=== PATIENT | male | born 1970 | race Caucasian/White ===

== ENCOUNTER 2020-06-30 19:05 | Emergency (ER) | payer BC ==
[~2020-06-30] VITALS: Ht 180.3 cm; Wt 108.0 kg
--- NOTE | 2020-06-30 19:14 | PHYS DOC ---
General Adult HPI: HPI: 49-year-old male past medical history of factor V Leiden on Xarelto & ASA, CVA (residual right sided vision loss) and HTN, presents to the ED brought in by EMS concern for code stroke with complaints of left hand numbness that has worsened, now to complete paralysis of his left upper extremity, left facial droop and slurred speech that started at 1835 (1834 LKW) this evening. Pt does not know what tpa is or if he's ever received it. Glucose was 167 per EMS. Patient reports he takes Xarelto 20 mg every night, last dose was 9 PM last night. Reports past strokes in 2015 where he was initially seen at [facility] but diagnosed at . 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 Buck, pcp-Marnie Vo and was diagnosed with factor V Leiden, is been on Xarelto ever since then. No history of DVT, PEs or CAD/ACS. No history of Covid in the past year. Review of Systems: Review of Systems: Constitutional: Denies fever or chills. [] Eyes: Denies change in visual acuity. [] HENT: Denies nasal congestion or sore throat. [] Respiratory: Denies cough or shortness of breath. [] Cardiovascular: Denies chest pain or edema. [] GI: Denies abdominal pain, nausea, vomiting, bloody stools or diarrhea. [] : Denies dysuria or hematuria Musculoskeletal: Denies back pain or joint pain. [] Integument: Denies rash or diaphoresis Neurologic: Denies headache or neck stiffness Endocrine: Denies polyuria or polydipsia. [] Lymphatic: Denies swollen glands. [] Psychiatric: Denies depression or anxiety. [] Heart Score: Risk Factors: Risk Factors: DM, Current or recent (<one month) smoker, HTN, HLP, family history of CAD, obesity. Risk Scores: Score 0 - 3: 2.5% MACE over next 6 weeks - Discharge Home Score 4 - 6: 20.3% MACE over next 6 weeks - Admit for Clinical Observation Score 7 - 10: 72.7% MACE over next 6 weeks - Early Invasive Strategies Physical Exam: PE: Constitutional: Well developed, well nourished, no acute distress, non-toxic appearance. HENT: Normocephalic, atraumatic, Eyes: PERRLA, EOMI, conjunctiva normal, no discharge. Neck: Normal range of motion, supple, Cardiovascular: S1/2 present, regular rhythm Lungs & Thorax: Speaking in full sentences, bilateral equal chest rise, no tachypnea or increased work of breathing Abdomen: soft, no tenderness, Skin: Warm, dry, no erythema, no rash. [] Back: No tenderness, no CVA tenderness. [] Extremities: No tenderness, no cyanosis, no edema Neurologic: 13 points NIH Stroke Scale (1-dysarthria, 2-loss of sensation lue, 1-drift LLE, 2-partial facial paralysis, 1-unable to squeeze left hand, 4-no left arm movment, 1-partial hemianopia, 1-mild/mod aphasia), alert and oriented X 3, Psychologic: Affect normal, judgement normal, mood normal. [] EKG: EKG: Sinus rhythm at 62 bpm, no axis deviation, T wave inversion lead III, no STEFANO/STD Radiology/Procedures: Radiology/Procedures: IMAGING REPORT Signed PATIENT: WADE NELSON PACCOUNT: [id number] : 1970 LOCATION: ER AGE: 49 SEX: M EXAM STATUS: PRE ER ORD. PHYSICIAN: KELLY IRWIN DO REASON: lue paralysis PROCEDURE: CT CODE STROKE HEAD WO Exam: CT head INDICATION: Left upper extremity paralysis TECHNIQUE: Sequential axial images through the head were obtained without the administration of IV contrast. Comparisons: None FINDINGS: No focal parenchymal lesion or hemorrhage is identified. There is no midline shift or sulcal effacement. Several chronic appearing infarcts are noted bilaterally largest in the left occipital lobe. Patchy hypodensity in the periventricular white matter. Lacunar infarcts the basal ganglia bilaterally. No acute vascular territory infarction is identified. Lux-white distinction is preserved. The ventricular system is within normal limits without compression hydrocephalus. The basal cisterns are well maintained. The visualized portions of the paranasal sinuses and mastoid air cells are well- pneumatized. No acute fractures. IMPRESSION: Several chronic infarcts with age-indeterminate small vessel ischemic change. No acute hemorrhage. Exposure: One or more of the following in the visualized dose reduction techniques were utilized for this examination: 1. Automated exposure control 2. Adjustment of the MA and/or KV according to patient size Use of iterative of reconstructive technique FOR INTERNAL CODING PURPOSES Critical result: Findings discussed with Kelly Irwin at 06/30/2020 7:21 PM. RESULT CODE: (C) Electronically signed by: Kimani Vigil MD (06/30/2020 7:26 PM) [id number] DICTATED and SIGNED BY: KIMANI VIGIL MD DATE: 06/30/[id number] 0 IMAGING REPORT Signed PATIENT: WADE NELSON PACCOUNT: [id number] : 1970 LOCATION: ER AGE: 49 SEX: M EXAM STATUS: PRE ER ORD. PHYSICIAN: KELLY IRWIN DO REASON: left arm weakness PROCEDURE: PORTABLE CHEST 1V Single view chest dated 06/30/2020: No comparison available. Clinical Indication: CVA. Findings: Single upright portable exam of the chest was performed. Heart size and mediastinal contours are within normal limits given technique. The lungs are clear without evidence of focal consolidation. Vascular interstitium is within normal limits. Impression:: Negative portable chest. Electronically signed by: Evin Thibodeaux MD (06/30/2020 7:41 PM) [id number] DICTATED and SIGNED BY: EVIN THIBODEAUX MD DATE: 06/30/[id number] 0 IMAGING REPORT Signed PATIENT: WADE NELSON PACCOUNT: [id number] : 1970 LOCATION: ER AGE: 49 SEX: M EXAM STATUS: PRE ER ORD. PHYSICIAN: KELLY IRWIN DO REASON: lue paralysis/ OMNI 350, 75 ML. HX STROKE PROCEDURE: CTA HEAD/NECK - CODE STROKE Exam: CTA head and neck INDICATION: Left upper extremity paralysis TECHNIQUE: Sequential axial images through the head and neck obtained following the administration of 75 mL of Omni 350 IV contrast. Sagittal and coronal reformatted images were reconstructed from the axial data and reviewed. 3-D reformatted images were reconstructed from the axial data and reviewed. Comparisons: CT head without contrast same day FINDINGS: CTA NECK: Visualized portions of thoracic aorta is unremarkable. Standard three-vessel aortic arch. Right common carotid artery is patent without evidence of stenosis, occlusion or aneurysm. Mild plaque at the origin of the right internal carotid artery without significant stenosis. Left common carotid artery is patent without evidence of stenosis, occlusion or aneurysm. Cervical segment of the left internal carotid artery is patent without evidence of stenosis, occlusion or aneurysm. Right vertebral artery is patent to basilar confluence without evidence of stenosis, occlusion or aneurysm. Left vertebral artery is patent to the basilar confluence without evidence of stenosis, occlusion or aneurysm. Visualized paraspinal soft tissues are unremarkable. CTA head: Intracranial segments of the right internal carotid artery are patent without evidence of stenosis, occlusion or aneurysm. There is abrupt occlusion of an M3 branch of the right MCA, seen on series 3 image 292/293 in the sylvian fissure. Intracranial segments of the left internal carotid artery are patent without evidence of stenosis, occlusion or aneurysm. Left MCA is patent. Left ALEKSANDER is patent. Basilar artery is patent without evidence of stenosis, occlusion or aneurysm. assembler wire mesh gate are patent bilaterally. IMPRESSION: 1. Abrupt occlusion of an M3 branch of the right MCA is described above. 2. Mild plaque at the origin of the right internal carotid artery without significant stenosis. Exposure: One or more of the following in the visualized dose reduction mary hniques were utilized for this examination: 1. Automated exposure control 2. Adjustment of the MA and/or KV according to patient size 3. Use of iterative of reconstructive technique FOR INTERNAL CODING PURPOSES Critical result: Findings discussed with Kelly Irwin at 06/30/2020 7:47 PM. RESULT CODE: (C) Electronically signed by: Kimani Vigil MD (06/30/2020 7:54 PM) [id number] DICTATED and SIGNED BY: KIMANI VIGIL MD DATE: 06/30/20 [id number] 0 Course & Med Decision Making: Course & Med Decision Making Pertinent Labs and Imaging studies reviewed. (See chart for details) Concern for possible new right MCA M3 ischemic stroke. D/w Dr. Karen Arias -neuroIR, agrees with me, patient is not a TPA candidate due to history of Xarelto. Had MRI in 2015 at but no MRA due to kidney disease which was not reported on patient's arrival. I also reviewed this case with Dr. Vazquez, neurology who also agrees patient is not a TPA candidate. After Dr. Arias reviewed patient's CT imaging, she is concerned there may possibly be an M2 occlusion that patient could benefit from thrombectomy. Will immediately transfer to for neuro IR evaluation/likely perfusion studies. 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 Pt aware of limb-threatening, critical nature of this. I have spoken with the patient and/or caregivers. I have explained the patient's condition, diagnosis and treatment plan based on the information available to me at this time. I have answered the patient's and/or caregivers questions and answered any concerns. The patient and/or caregivers have as good an understanding of the patient's diagnosis, condition and treatment plan as can be expected at this point. The patient has been stabilized within the capability of the emergency department. The patient will be transported for further care and management or will be moved to an observation or inpatient service. I have communicated with the staff or medical practitioner taking over this patient's care. Critical Care: Authorized and Performed by: Kelly Irwin DO Total critical care time: approximately 40 minutes Due to a high probability of clinically significant, life threatening deterioration, the patient required my highest level of preparedness to intervene emergently and I personally spent this critical care time directly and personally managing the patient. This critical care time included obtaining a history; examining the patient; pulse oximetry; ventilator management if necessary; ordering and review of studies; arranging urgent treatment with development of a management plan; evaluation of patient's response to treatment; frequent reassessment; discussion with patient/family; and, discussions with other providers. This critical care time was performed to assess and manage the high probability of imminent, life-threatening deterioration that could result in multi-organ failure. It was exclusive of separately billable procedures and treating other patients and teaching time. Please see MDM section and the rest of the note for further information on patient assessment and treatment. Dragon Disclaimer: Dragon Disclaimer: This electronic medical record was generated, in whole or in part, using a voice recognition dictation system. Departure Departure Impression: Primary Impression: Acute ischemic right MCA stroke Additional Impressions: Paralysis of left upper extremity Microcytic anemia Renal insufficiency Factor 5 Leiden mutation, heterozygous National Institutes of Health (NIH) Stroke Scale facial palsy score 2, partial paralysis (total or near-total paralysis of lower face) Disposition: 05 DC/TRF OTHER TYPE INSTITUTI (transfer immediately to for potentional neuroIR thrombectomy of right M2, Dr. America Calix) Condition: CRITICAL KELLY IRWIN DO Jun 30, 2020 19:14
[2020-06-30] MEDS ORDERED: IOHEXOL 350 MG/ML 100 ML VIAL. IV ONE (19:15)
--- NOTE | 2020-06-30 19:29 | RAD ---
Exam: CT head INDICATION: Left upper extremity paralysis TECHNIQUE: Sequential axial images through the head were obtained without the administration of IV co ntrast. Comparisons: None FINDINGS: No focal parenchymal lesion or hemorrhage is identified. There is no midline shift or sulcal effaceme nt. Several chronic appearing infarcts are noted bilaterally largest in the left occipital lobe. Patchy h ypodensity in the periventricular white matter. Lacunar infarcts the basal ganglia bilaterally. No ac dayday vascular territory infarction is identified. Lux-white distinction is preserved. The ventricular system is within normal limits without compression hydrocephalus. The basal cisterns are well maintained. The visualized portions of the paranasal sinuses and mastoid air cells are well-pneumatized. No acute fractures. IMPRESSION: Several chronic infarcts with age-indeterminate small vessel ischemic change. No acute hemorrhage. Exposure: One or more of the following in the visualized dose reduction techniques were utilized for this examination: 1. Automated exposure control 2. Adjustment of the MA and/or KV according to patient size Use of iterative of reconstructive technique FOR INTERNAL CODING PURPOSES Critical result: Findings discussed with Kelly Daniel at 06/30/2020 7:21 PM. RESULT CODE: (C) Electronically signed by: Kimani Miller MD (06/30/2020 7:26 PM) [id number]
[2020-06-30] MEDS ORDERED: CONTRAST GIVEN. MC PRN (19:30)
--- NOTE | 2020-06-30 19:44 | RAD ---
Single view chest dated 06/30/2020: No comparison available. Clinical Indication: CVA. Findings: Single upright portable exam of the chest was performed. Heart size and mediastinal contours are with in normal limits given technique. The lungs are clear without evidence of focal consolidation. Vascul ar interstitium is within normal limits. Impression:: Negative portable chest. Electronically signed by: Evin Thibodeaux MD (06/30/2020 7:41 PM) [id number]
--- NOTE | 2020-06-30 19:56 | RAD ---
Exam: CTA head and neck INDICATION: Left upper extremity paralysis TECHNIQUE: Sequential axial images through the head and neck obtained following the administration of 75 mL of Omni 350 IV contrast. Sagittal and coronal reformatted images were reconstructed from the a xial data and reviewed. 3-D reformatted images were reconstructed from the axial data and reviewed. Comparisons: CT head without contrast same day FINDINGS: CTA NECK: Visualized portions of thoracic aorta is unremarkable. Standard three-vessel aortic arch. Right common carotid artery is patent without evidence of stenosis, occlusion or aneurysm. Mild plaqu e at the origin of the right internal carotid artery without significant stenosis. Left common carotid artery is patent without evidence of stenosis, occlusion or aneurysm. Cervical se gment of the left internal carotid artery is patent without evidence of stenosis, occlusion or aneury sm. Right vertebral artery is patent to basilar confluence without evidence of stenosis, occlusion or ane urysm. Left vertebral artery is patent to the basilar confluence without evidence of stenosis, occlusion or aneurysm. Visualized paraspinal soft tissues are unremarkable. CTA head: Intracranial segments of the right internal carotid artery are patent without evidence of stenosis, o cclusion or aneurysm. There is abrupt occlusion of an M3 branch of the right MCA, seen on series 3 im age 292/293 in the sylvian fissure. Intracranial segments of the left internal carotid artery are patent without evidence of stenosis, oc clusion or aneurysm. Left MCA is patent. Left ALEKSANDER is patent. Basilar artery is patent without evidence of stenosis, occlusion or aneurysm. tank riveter are patent bilater ally. IMPRESSION: 1. Abrupt occlusion of an M3 branch of the right MCA is described above. 2. Mild plaque at the origin of the right internal carotid artery without significant stenosis. Exposure: One or more of the following in the visualized dose reduction techniques were utilized for this examination: 1. Automated exposure control 2. Adjustment of the MA and/or KV according to patient size 3. Use of iterative of reconstructive technique FOR INTERNAL CODING PURPOSES Critical result: Findings discussed with Kelly Daniel at 06/30/2020 7:47 PM. RESULT CODE: (C) Electronically signed by: Kimani Miller MD (06/30/2020 7:54 PM) [id number]
[2020-06-30 20:04] LABS: BASO # 0.1 x10^3/uL (0.0-0.2); BASO % 1 % (0-3); EOS # 0.3 x10^3/uL (0.0-0.7); EOS % 5 % (0-3); HEMATOCRIT 26.7 % (39.0-53.0); HEMOGLOBIN 8.2 g/dL (13.0-17.5); LYMPH # 1.4 x10^3/uL (1.0-4.8); LYMPH % 23 % (24-48); MEAN CORPUSCULAR HEMOGLOBIN 21 pg (25-35); MEAN CORPUSCULAR HGB CONC 31 g/dL (31-37); MEAN CORPUSCULAR VOLUME 68 fL (79-100); MONO # 0.6 x10^3/uL (0.0-1.1); MONO % 11 % (0-9); NEUT # 3.6 x10^3/uL (1.8-7.7); NEUT % 60 % (31-73); PLATELET COUNT 167 x10^3/uL (140-400); RED BLOOD COUNT 3.91 x10^6/uL (4.30-5.70); RED CELL DISTRIBUTION WIDTH 14.6 % (11.5-14.5); WHITE BLOOD COUNT 5.9 x10^3/uL (4.0-11.0)
[2020-06-30 20:14] LABS: CALCIUM 8.8 mg/dL (8.5-10.1); CREATININE 1.6 mg/dL (0.7-1.3); GFR 46.2
[2020-06-30 20:15] LABS: PROTHROMBIN TIME PATIENT 14.9 SEC (11.7-14.0)
[2020-06-30 20:21] LABS: ALBUMIN 3.7 g/dL (3.4-5.0); ALBUMIN/GLOBULIN RATIO 1.1 (1.0-1.7); TOTAL BILIRUBIN 0.3 mg/dL (0.2-1.0); TOTAL PROTEIN 7.1 g/dL (6.4-8.2)
[2020-06-30 20:41] LABS: HYPOCHROMIA MOD; MICROCYTOSIS MARKED; PLT ESTIMATE ADEQUATE (ADEQUATE); POLYCHROMASIA SLIGHT; SPHEROCYTES OCC
[2020-06-30 20:42] LABS: OVALOCYTES MOD
[2020-06-30 20:49] VITALS: BP 169/78
--- NOTE | 2020-07-01 05:12 | EKG ---
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
== END 2020-06-30 21:05 | disposition short-term general hospital (02) ==
LOC: ER 19:05
DX: I63.511 Cerebral infarction due to unspecified occlusion or stenosis of right middle cerebral artery (principal); R29.702 NIHSS score 2; G83.24 Monoplegia of upper limb affecting left nondominant side; D50.9 Iron deficiency anemia, unspecified; D68.51 Activated protein C resistance; N28.9 Disorder of kidney and ureter, unspecified; I10 Essential (primary) hypertension
CPT/HCPCS: 36415; 70450; 70496; 70498; 71045; 80053; 85025; 85610; 85730; 93005; 99291; Q9967